=== PATIENT | female | born 1965 | race Caucasian/White ===

== ENCOUNTER 2024-02-01 10:55 | Day surgery (SDC) | payer OTHER ==
[~2024-02-01] VITALS: Ht 167.6 cm; Wt 114.9 kg
[~2024-02-01 10:55] MED LIST: CLINDAMYCIN PHOS 900 MG/ D5W 50 ML PREMIX IV ONE
[2024-02-01 11:34] LABS: HCG,QUAL RESULT NEGATIVE (NEGATIVE)
[2024-02-01 13:59] VITALS: O2SAT 100
[2024-02-01] MEDS ORDERED: MIDAZOLAM HCL 2 MG/2 ML VIAL (VERSED) ONE (15:41)
[2024-02-01] MEDS ORDERED: ACETAMINOPHEN I.V. 1000 MG 100 ML IV ONE (15:41)
[2024-02-01] MEDS ORDERED: fentaNYL CITRATE/PF 100 MCG/2 ML AMP ONE (15:41)
[2024-02-01] MEDS ORDERED: SEVOFLURANE 15 MIN GAS INH ONE (15:42)
[2024-02-01] MEDS ORDERED: DEXAMETHASONE SOD PHOSPHATE 4 MG/ML VIAL ONE (15:42)
[2024-02-01] MEDS ORDERED: SUCCINYLCHOLINE CHLORIDE 20 MG/ML(QUELICIN) ONE (15:42)
[2024-02-01] MEDS ORDERED: PROPOFOL 200MG/ 20ML VIAL (DIPRIVAN) IV ONE (15:42)
[2024-02-01] MEDS ORDERED: NS IRRIG SOLN 1000 ML IR ONE (15:42)
[2024-02-01] MEDS ORDERED: ONDANSETRON HCL 4 MG/2 ML VIAL ONE (15:42)
[2024-02-01] MEDS ORDERED: BUPIVACAINE /PF 0.25% 30 ML VIAL INJ ONE (15:42)
[2024-02-01] MEDS ORDERED: ISOSULFAN BLUE 5 ML VIAL (LYMPHAZURIN) ONE (15:42)
[2024-02-01] MEDS ORDERED: LR 1,000 ML IV.SOLN IV ONE (15:42)
[2024-02-01] MEDS ORDERED: fentaNYL CITRATE/PF 100 MCG/2 ML AMP IVP PRN ×2 (16:15)
[2024-02-01] MEDS ORDERED: HYDROmorphone 1 MG/ML INJ. CARTRIDGE IVP PRN (16:15)
[2024-02-01] MEDS ORDERED: ONDANSETRON HCL 4 MG/2 ML VIAL IVP PRN ×2 (16:15→18:45)
[2024-02-01] MEDS ORDERED: HYDR-3925 PO (18:37)
[2024-02-01] MEDS ORDERED: HYDROcodone/ACETAMIN 5-325 MG TAB (NORCO/ VICODIN) PO PRN (18:45)
[2024-02-01] MEDS ORDERED: MORPHINE 4 MG INJ. 4 MG/ML VIAL IVP PRN (18:45)
[2024-02-01] MEDS ORDERED: HYDROmorphone 2 MG/ML VIAL IVP PRN (18:45)
[2024-02-01] MEDS ORDERED: ACETAMINOPHEN 500 MG TABLET PO ONE (20:00)
[2024-02-01] MEDS: LR 1,000 ML IV ONE (20:03)
[2024-02-01] MEDS ORDERED: ACETAMINOPHEN 500 MG TABLET ONE (20:12)
[2024-02-01] MEDS: ACETAMINOPHEN 500 MG TABLET PO ONE (20:15)
[2024-02-01 21:04] VITALS: BP_SYST 133; PULSE 75; RESP 20
== END 2024-02-01 20:49 | disposition home or self-care (01) ==
LOC: SMU 10:55 → SDS 10:55
PROVIDERS: ATTEND Surgery
DX: C43.59 Malignant melanoma of other part of trunk (principal); L90.5 Scar conditions and fibrosis of skin; I10 Essential (primary) hypertension; E78.5 Hyperlipidemia, unspecified; E66.01 Morbid (severe) obesity due to excess calories; Z68.41 Body mass index [BMI] 40.0-44.9, adult; Z79.899 Other long term (current) drug therapy; Z98.890 Other specified postprocedural states; Z88.0 Allergy status to penicillin; Z82.49 Family history of ischemic heart disease and other diseases of the circulatory system
CPT/HCPCS: 38531; 12035; 11602; 84703; 87081; 93005; 78195; 88305; 88307; 88341; 88342; A9541; J3490 ×2; J1100; J3465; J2405; J2704; J0330; J3010; Q9968; J7120; J0131